=== PATIENT | male | born 1955 | race Caucasian/White ===

== ENCOUNTER → 2018-07-24 | Outpatient (CLI) | payer MEDICARE ==
[2018-07-26 09:53] LABS: RPR Reactive (Nonreactive)
[2018-07-27 06:15] LABS: HIV SCREEN 4TH GENERATION WRFX Non Reactive (Non Reactive)
== END ==
LOC: LAB 18:00 → LAB SHORT 18:00
PROVIDERS: Physician Assistant
DX: R21 Rash and other nonspecific skin eruption (principal)
CPT/HCPCS: 86060; 86592; 86593; 87389; 87529

== ENCOUNTER 2021-03-14 09:39 | Observation (INO) | payer OTHER, MEDICARE ==
[~2021-03-14] VITALS: Ht 190.5 cm; Wt 68.0 kg
[2021-03-14 12:46] LABS: BASOPHILS ABSOLUTE AUTO 0.05 K/mm3 (0.00-0.23); BASOPHILS PERCENT AUTO 1 % (0-2); EOSINOPHILS ABSOLUTE AUTO 0.15 K/mm3 (0.00-0.68); EOSINOPHILS PERCENT AUTO 1 % (0-6); Hematocrit 42.6 % (37.0-53.0); Hemoglobin 13.6 g/dL (13.5-17.5); IMMATURE GRAN ABSOLUTE AUTO 0.05 K/mm3 (0.00-0.10); IMMATURE GRAN PERCENT AUTO 1 % (0-1); LYMPHOCYTES ABSOLUTE AUTO 1.64 K/mm3 (0.84-5.20); LYMPHOCYTES PERCENT AUTO 15 % (21-46); MONOCYTES ABSOLUTE AUTO 0.74 K/mm3 (0.16-1.47); MONOCYTES PERCENT AUTO 7 % (4-13); Mean Corpuscular HGB 31.9 pg (26.0-34.0); Mean Corpuscular HGB Conc 31.9 g/dL (31.5-36.5); Mean Corpuscular Volume 100 fL (80-100); Mean Platelet Volume 8.7 fL (9.1-12.4); NEUTROPHILS PERCENT AUTO 76 % (41-73); Platelet Count 274 K/mm3 (150-400); RDW Coefficient Variation 13.9 % (11.7-14.2); Red Blood Cell Count 4.27 M/mm3 (4.30-5.90); White Blood Cell Count 11.03 K/mm3 (4.00-11.30)
[2021-03-14 14:04] LABS: Anion Gap 6 mmol/L (6-16); Blood Urea Nitrogen 7 mg/dL (8-24); CO2, Blood 30 mmol/L (21-32); Calcium, Blood 8.7 mg/dL (8.5-10.1); Chloride, Blood 107 mmol/L (98-108); Glomerular Filtration Rate >60 (60-); Glucose, Blood 89 mg/dL (70-99); Potassium, Blood 3.8 mmol/L (3.5-5.5); Sodium, Blood 143 mmol/L (136-145)
[2021-03-14 14:32] LABS: Influenza A, PCR NEGATIVE (NEGATIVE); Influenza B, PCR NEGATIVE (NEGATIVE); Resp Syncytial Virus, PCR NEGATIVE (NEGATIVE); SARS-Cov-2 (COVID-19) PCR, MMC NEGATIVE (NEGATIVE)
--- NOTE | 2021-03-14 14:41 | NUR ---
PT CAME FROM THE ER TO HAVE HIS PROCEDURE. [employer] warming gown applied. History, Chart, Medications and Allergies reviewed before start of procedure.Lungs clear T/O to Auscultation. Patient confirms NPO status and agrees with scheduled surgery. Pre-Op teaching done. Pt verbalizes understanding. Patient States Post-Procedure ride home has been arranged.
[2021-03-14] MEDS ORDERED: ASPI325 PO (14:52)
--- NOTE | 2021-03-15 03:21 | NUR ---
SHIFT SUMMARY PT IS A/O X4, VERY [place]. PT HAS BEEN RESTING IN BED WITH L LEG ELEVATED ON PILLOWS. LISA/SPLINT IN PLACE TO L LEG. TOES PINK AND WARM WITH BRISK CAP REFIL. PT HAS DENIED PAIN OVERNIGHT. TOLERATING PO INTAKE AND VOIDING USING URINAL IND. USING O2 OVERNIGHT TO MAINTAIN O2 SATURATION; NONE AT BASELINE. BP NOTED TO BE SLIGHTLY LOW; ON IV FLUIDS @ 50/HR PER ORDER. WCTM. PT RESTING AT THIS TIME WITH CALL LIGHT IN REACH.
--- NOTE | 2021-03-15 14:22 | NUR ---
03/15/21 1422 Olive Rodrigues VERIFICATIONS: EDIT CHART.
--- NOTE | 2021-03-15 17:24 | NUR ---
SHIFT SUMMARY PT IS ALERT AND ORIENTEDx4, VERY [place]. POD#1 LEFT ORIF W/ PLATING TO ANKLE. PT ABLE TO MOBILIZE WITH PHYSICAL THERAPY TODAY. PT IS RECOMMEDED TO STAY ANOTHER NOC TO WORK WITH CRUTCHES AND WALKER. PAIN IS CONTROLLED WITH PO PAIN MEDICATION. LEFT LEG SPLITED AND LISA WRAPPED, ELEVATED ON PILLOWS. PT DOES REPORT SOME NUMBNESS TO FOOT, OTHER ASPECTS OF CSM INTACT. VITALS HAVE REMAINED STABLE.
--- NOTE | 2021-03-16 06:37 | NUR ---
SHIFT SUMMARY POD2 L ORIF ANKLE FX REPAIR, A/O X4, VSS, TOLERATING PO, VOIDING, AMBULATING W/ ASSISTANCE FWW OR CRUTCHES, PAIN WELL CONTROLLED, PLAN TO DC TODAY IF ALL GOES WELL W/ PT. NO ACUTE EVENTS THIS SHIFT. CALL LIGHT IN REACH, WILL CONTINUE TO MONITOR AND REPORT TO ONCOMING DAY RN.
[2021-03-16] MEDS ORDERED: ACET500 PO (14:25)
[2021-03-16] MEDS ORDERED: OXYC5 PO (14:25)
--- NOTE | 2021-03-16 14:37 | NUR ---
DISCHARGE PLANNING SALOMÓN CARDOZA IS ASSISTING WITH DISCHARGE HOME. HOME HEALTH WITH [facility] IS BEING ARRANGED AND EQUIPMENT DELIVERY WILL BE ARRANGED FROM [facility]. WILL MONITOR UNTIL DISCHARGE.
--- NOTE | 2021-03-16 16:09 | NUR ---
PHYSICAL THERAPY PT IS PLANNING TO STAY IN HIS CAMP TRAILER ON [place] FOR A [place] WHEN HE DISCHARGES. HE REPORTS HE WILL HAVE ADEQUATE ASSISTANCE AND PEOPLE TO DRIVE HIM TO APPOINTMENTS. CONCERNS ABOUT DISTANCE TO PT'S HOME FOR HOME HEALTH STAFF TO TRAVEL. SALOMÓN SONY WAS NOTIFED AND ASKED TO PASS ON TO TOMMY LUTZ. MESSAGE WAS LEFT FOR TOMMY LUTZ AND DR. OLVERA OFFICE ASKING THEM TO COORDINATE REGARDING THE BEST WAY TO GET PT PHYSICAL THERAPY FOR THIS PATIENT. PT'S PHONE NUMBER WAS LEFT WITH TOMMY AND DR. OLVERA OFFICE FOR FOLLOW UP ARRANGEMENTS TO BE COMMUNICATED/COORDINATED WITH THE PATIENT.
--- NOTE | 2021-03-16 17:10 | NUR ---
DISCHARGE PT PROVIDED WITH WRITTEN AND VERBAL DISCHARGE INSTRUCTIONS, HE REPORTED UNDERSTANDING. PT IS [place] BUT REPORTED HE COULD HEAR AND UNDERSTAND INSTRUCTIONS. PT WAS EDUCATED THAT HE WILL BE CALLED REGARDING PLAN FOR PHYSICAL THERAPY ON THURSDAY. PT WAS EDUCATED TO REMAIN NON-WEIGHT BEARING ON HIS LLE AND TO USE HIS WALKER AT ALL TIMES FOR SAFETY. HE WAS ALSO EDUCATED TO REST ICE AND ELEVATE HIS LLE. EDUCATED TO LEAVE HIS SPLINT IN PLACE UNTIL FOLLOW UP WITH DR. OLVERA. PRESCRIPTION PROVIDED, WALKER DELIVERED BY [facility].
--- NOTE | 2021-03-16 17:14 | NUR ---
PT DISCHARGED AT 1714.
== END 2021-03-16 17:40 | disposition home or self-care (01) ==
LOC: ER 09:39 → SURS 09:40
PROVIDERS: Emergency Medicine; ADMIT Orthopaedic Surgery
DX: S82.232A Displaced oblique fracture of shaft of left tibia, initial encounter for closed fracture (principal); S82.432A Displaced oblique fracture of shaft of left fibula, initial encounter for closed fracture; F17.210 Nicotine dependence, cigarettes, uncomplicated; V58.0XXA Driver of pick-up truck or van injured in noncollision transport accident in nontraffic accident, initial encounter; Z20.822 Contact with and (suspected) exposure to COVID-19; Z96.698 Presence of other orthopedic joint implants
CPT/HCPCS: 0241U; 27752; 73590; 73600; 73610; 80048; 85025; 93005; 93010; 96374-59; 96375-59; 97110; 97116; 97162; 97530; 99152; 99285-25; A9270; C1713; G0378; J0690; J1100; J2250; J2270; J2370; J2405; J2704; J3010; J7030; J7120